=== PATIENT | female | born 1970 | race Caucasian/White ===

== ENCOUNTER → 2018-08-14 | Outpatient (CLI) | payer OTHER, MEDICARE ==
[~2018-08-14] MED LIST: CLON1 PO; CLON2 PO; CYMBALTA; DOXE25 PO; DULO60 PO; ESZO2 PO; ESZO3 PO; FIORICET 50-301 EACH PO; KETO10 PO; LATUDA80 MG PO; LEVSOD125 PO; LEVSOD150 PO; LITH300ER PO; OMEP20ER PO; SERT100 PO; TOPI100 PO; ZELNORM; Zofran4 MG PO
[2018-08-14 16:10] LABS: BASOPHILS ABSOLUTE AUTO 0.05 K/mm3 (0.00-0.23); BASOPHILS PERCENT AUTO 1 % (0-2); EOSINOPHILS ABSOLUTE AUTO 0.18 K/mm3 (0.00-0.68); EOSINOPHILS PERCENT AUTO 2 % (0-6); Hemoglobin 13.4 g/dL (11.5-16.0); IMMATURE GRAN ABSOLUTE AUTO 0.06 K/mm3 (0.00-0.10); IMMATURE GRAN PERCENT AUTO 1 % (0-1); LYMPHOCYTES ABSOLUTE AUTO 2.25 K/mm3 (0.84-5.20); LYMPHOCYTES PERCENT AUTO 25 % (21-46); MONOCYTES PERCENT AUTO 5 % (4-13); Mean Corpuscular HGB 28.1 pg (26.0-34.0); Mean Corpuscular HGB Conc 33.5 g/dL (31.5-36.5); Mean Corpuscular Volume 84 fL (80-100); Mean Platelet Volume 9.5 fL (9.1-12.4); NEUTROPHILS ABSOLUTE AUTO 6.15 K/mm3 (1.96-9.15); NEUTROPHILS PERCENT AUTO 67 % (41-73); Platelet Count 350 K/mm3 (150-400); RDW Coefficient Variation 12.8 % (11.7-14.2); RDW Standard Deviation 38.7 fL (35.1-46.3); Red Blood Cell Count 4.77 M/mm3 (3.80-5.20); White Blood Cell Count 9.19 K/mm3 (4.00-11.30)
[2018-08-14 16:24] LABS: Alanine Aminotransfer (ALT/SGP 55 U/L (12-78); Albumin, Blood 4.1 g/dL (3.4-5.0); Alk Phos 105 U/L (40-126); Anion Gap 11 mmol/L (6-16); Aspartate Aminotrans (AST/SGOT 25 U/L (12-37); Bilirubin, Total 0.3 mg/dL (0.1-1.0); Blood Urea Nitrogen 7 mg/dL (8-24); Bun/Creatinine Ratio 8.4 (12.0-20.0); CO2, Blood 26 mmol/L (21-32); CPK Creatine Kinase 62 U/L (26-192); Calcium, Blood 8.9 mg/dL (8.5-10.1); Chloride, Blood 103 mmol/L (98-108); Creatinine, Blood 0.83 mg/dL (0.40-1.00); Glomerular Filtration Rate >60 (60-); Glucose, Blood 98 mg/dL (70-99); Potassium, Blood 3.5 mmol/L (3.5-5.5); Sodium, Blood 140 mmol/L (136-145); Total Protein, Blood 8.1 g/dL (6.4-8.2)
[2018-08-14 16:25] LABS: Troponin I <0.017 ng/mL (0.000-0.040)
== END | disposition home or self-care (01) ==
LOC: LAB EV 16:06 → LAB SHORT 16:06
PROVIDERS: Physician Assistant
DX: R07.89 Other chest pain (principal)
CPT/HCPCS: 80053; 82550; 83690; 84484; 85025

== ENCOUNTER 2019-05-12 08:20 | Day surgery (SDC) | payer OTHER, MEDICARE ==
[2019-06-15] MEDS ORDERED: PRAV20 PO (14:10)
[2019-06-15] MEDS ORDERED: LISI20 PO (14:11)
[2019-06-15] MEDS ORDERED: OMEPRAZOLE20 MG PO (14:12)
[2019-06-15] MEDS ORDERED: PROP80ER PO (14:14)
[2019-06-15] MEDS ORDERED: Nortriptyline H50 MG PO (14:14)
[2019-06-15] MEDS ORDERED: QUET100 PO (14:14)
[2019-06-15] MEDS ORDERED: PROG100 PO (14:15)
[2019-06-15] MEDS ORDERED: Estrace Vagin42.5 GM VAG (14:17)
[2019-06-15] MEDS ORDERED: VITAMIN D325 MCG PO (14:17)
[2019-06-15] MEDS ORDERED: PERP8 PO (14:19)
[2019-06-15] MEDS ORDERED: Metamucil Plus1 EACH PO (14:19)
[2019-06-15] MEDS ORDERED: MODA200 PO (14:19)
[2019-06-15] MEDS ORDERED: Flonase 0.05% N16 GM (14:20)
[2019-06-15] MEDS ORDERED: EXCEDRIN MIGRAINE PO (14:21)
[2019-06-15] MEDS ORDERED: BELSOMRA20 MG PO (14:22)
[2019-06-15] MEDS ORDERED: VRAYLAR1.5 MG PO (14:24)
== END 2019-05-12 22:48 | disposition home or self-care (01) ==
LOC: MOI MAM 08:20
DX: D05.12 Intraductal carcinoma in situ of left breast (principal)
CPT/HCPCS: 19081; 88305; 88360

== ENCOUNTER 2019-06-14 09:11 | Day surgery (SDC) | payer OTHER, MEDICARE ==
[2019-06-15] MEDS ORDERED: PRAV20 PO (14:10)
[2019-06-15] MEDS ORDERED: LISI20 PO (14:11)
[2019-06-15] MEDS ORDERED: OMEPRAZOLE20 MG PO (14:12)
[2019-06-15] MEDS ORDERED: PROP80ER PO (14:14)
[2019-06-15] MEDS ORDERED: QUET100 PO (14:14)
[2019-06-15] MEDS ORDERED: Nortriptyline H50 MG PO (14:14)
[2019-06-15] MEDS ORDERED: PROG100 PO (14:15)
[2019-06-15] MEDS ORDERED: Estrace Vagin42.5 GM VAG (14:17)
[2019-06-15] MEDS ORDERED: VITAMIN D325 MCG PO (14:17)
[2019-06-15] MEDS ORDERED: Metamucil Plus1 EACH PO (14:19)
[2019-06-15] MEDS ORDERED: MODA200 PO (14:19)
[2019-06-15] MEDS ORDERED: PERP8 PO (14:19)
[2019-06-15] MEDS ORDERED: Flonase 0.05% N16 GM (14:20)
[2019-06-15] MEDS ORDERED: EXCEDRIN MIGRAINE PO (14:21)
[2019-06-15] MEDS ORDERED: BELSOMRA20 MG PO (14:22)
[2019-06-15] MEDS ORDERED: VRAYLAR1.5 MG PO (14:24)
== END 2019-06-14 22:40 | disposition home or self-care (01) ==
LOC: MOI MAM 09:11
DX: D05.12 Intraductal carcinoma in situ of left breast (principal); I10 Essential (primary) hypertension; E03.9 Hypothyroidism, unspecified; F31.9 Bipolar disorder, unspecified; F25.9 Schizoaffective disorder, unspecified; G47.00 Insomnia, unspecified; E78.5 Hyperlipidemia, unspecified; Z88.1 Allergy status to other antibiotic agents; Z88.8 Allergy status to other drugs, medicaments and biological substances; Z79.899 Other long term (current) drug therapy
CPT/HCPCS: 19281

== ENCOUNTER 2019-07-13 05:56 | Observation (INO) | payer OTHER, MEDICARE ==
[~2019-07-13] VITALS: Ht 160 cm; Wt 89.3 kg
[~2019-07-13 05:56] MED LIST changes: +BELSOMRA20 MG PO; +EXCEDRIN MIGRAINE PO; +Estrace Vagin42.5 GM VAG; +Flonase 0.05% N16 GM; +LISI20 PO; +MODA200 PO; +Metamucil Plus1 EACH PO; +Nortriptyline H50 MG PO; +OMEPRAZOLE20 MG PO; +PERP8 PO; +PRAV20 PO; +PROG100 PO; +PROP80ER PO; +QUET100 PO; +VITAMIN D325 MCG PO; +VRAYLAR1.5 MG PO
--- NOTE | 2019-07-13 06:18 | NUR ---
History, Chart, Medications and Allergies reviewed before start of procedure. Patient confirms NPO status and agrees with scheduled surgery.
--- NOTE | 2019-07-13 11:22 | NUR ---
Received the pt to room 219; She is alert, oriented, and was able to stand from the stretcher and step to the bed, at her request. Denied dizzyness/lightheadedness. STates pain is 5/10, tolerable. Vital signs stable. Dressing on the left chest wall noted to be intact, dry, and clean, secured with erin wrap around her entire chest. DEBO drain is in place, draining small amount of serosanginous drainage. She was accompanied to the room by her , and both were oriented to hourly rounding, call light functions, plan of care, and advancement of diet as tolerated. She was also instructed to not get up without assistance at this time. SHe verbalized understanding. Provided with ice chips and water by Leelee DanielA.
[2019-07-13] MEDS ORDERED: HYDPAM25 PO (11:57)
--- NOTE | 2019-07-13 12:17 | NUR ---
The pt is tolerating her ice chips and clear liquids, and is also eating some jello very slowly, and states that she has no nausea. Home medications reconciled, and nursing admission history and assessment completed. The pt reports that her pain has improved to a 4/10 from 5/10 when she arrived. She is requesting a dietary consultation for education on plant-based, whole foods diet, and also a vegan diet. These were ordered for her. Spoke with Dr. Nelson at this time as he came by to check on the patient, and additional verbal medication orders were received.
--- NOTE | 2019-07-13 17:21 | NUR ---
CARE ASSUMED FOR PT AT APPROXIMATELY 1616. PT ALERT AND ORIENTED. PAIN MANAGED. WILL CONTINUE TO MONITOR.
--- NOTE | 2019-07-13 18:04 | NUR ---
SHIFT SUMMARY PAIN MANAGED. PT IS TOLERATING PO. INDEPENDENT IN ROOM. NO CHANGES TO REPORT AT THIS TIME. WILL CONTINUE TO MONITOR.
[2019-07-13] MEDS ORDERED: CLON2 PO (19:58)
--- NOTE | 2019-07-14 06:16 | NUR ---
SHIFT SUMMARY HAS RESTED THIS SHIFT. PAIN MANAGED WITH PRN PAIN MEDS GIVEN X2 THIS SHIFT. HAS AMBULATED TO BATHROOM WITHOUT ASSISTACE NEEDED. 60ML SS OUTPUT IN DEBO DRAIN. DENIES FURTHER NEEDS OR WANTS AT THIS TIME SAFETY MEASURES IN PLACE. WILL GIVE HAND OFF TO ONCOMING SHIFT USING SBAR DURING BEDSIDE REPORT.
--- NOTE | 2019-07-14 07:50 | NUR ---
DR PHIPPS ROUNDING ON PT
[2019-07-14] MEDS ORDERED: HYDR1TAB94 PO (10:03)
--- NOTE | 2019-07-14 10:53 | NUR ---
discharge teaching provided with stated understanding of instructions. pt and to transport pt's belongings to awaiting vehicle. pt declines wheelchair, will walk to car. peripheral IV removed WNL
== END 2019-07-14 10:53 | disposition home or self-care (01) ==
LOC: ORSCMMR 05:56 → ORD 07:30 → ORSCMMR 09:46 → SURS 09:46
PROVIDERS: ADMIT Surgery
PROC: 0HBU0ZZ Excision of Left Breast, Open Approach (ICD-10-PCS; principal; 2019-07-13 07:30)
DX: D05.12 Intraductal carcinoma in situ of left breast (principal); Z79.899 Other long term (current) drug therapy; Z98.890 Other specified postprocedural states
CPT/HCPCS: 88307; A9270-GY; G0378; J0690; J1100; J2250; J2405; J2704; J2710; J3010; J7120

== ENCOUNTER → 2020-02-29 | Outpatient (CLI) | payer OTHER, MEDICARE ==
[~2020-02-29] MED LIST changes: +HYDPAM25 PO; +HYDR1TAB94 PO
[2020-03-04 14:32] LABS: Stool Occult Bld Immuno 1 Negative (NEGATIVE)
== END | disposition home or self-care (01) ==
LOC: LAB SHORT 03:00 → LAB EV 03:00 → LAB SHORT 03-03 10:20
PROVIDERS: Registered Nurse Oncology
DX: D50.9 Iron deficiency anemia, unspecified (principal)
CPT/HCPCS: 82274

== ENCOUNTER 2020-06-26 11:34 | Day surgery (SDC) | payer OTHER, MEDICARE ==
[~2020-06-26] VITALS: Ht 160 cm; Wt 82.2 kg
[2020-06-26] MEDS ORDERED: PERP2 (11:55)
[2020-12-13] MEDS ORDERED: Nolvadex20 MG PO (21:09)
[2020-12-13] MEDS ORDERED: ABILIFY MYCITE5 M2 PO (21:10)
[2020-12-13] MEDS ORDERED: SERT50 PO (21:10)
[2020-12-13] MEDS ORDERED: METPHE18ER PO (21:10)
[2020-12-13] MEDS ORDERED: CLON.5 PO (21:11)
== END 2020-06-26 13:24 | disposition home or self-care (01) ==
LOC: ORSCSDS 11:34
PROVIDERS: Student in an Organized Health Care Education/Training Program
PROC: 0DB78ZX Excision of Stomach, Pylorus, Via Natural or Artificial Opening Endoscopic, Diagnostic (ICD-10-PCS; principal; 2020-06-26 13:00)
PROC: 0DBN8ZX Excision of Sigmoid Colon, Via Natural or Artificial Opening Endoscopic, Diagnostic (ICD-10-PCS; principal; 2020-06-26 13:00)
DX: D50.9 Iron deficiency anemia, unspecified (principal); D12.0 Benign neoplasm of cecum; F41.8 Other specified anxiety disorders; G47.33 Obstructive sleep apnea (adult) (pediatric); E06.3 Autoimmune thyroiditis; Z85.3 Personal history of malignant neoplasm of breast; Z79.899 Other long term (current) drug therapy
CPT/HCPCS: 88305; 88342; A9270; J2704; J7120

== ENCOUNTER 2021-08-02 16:06 | Emergency (ER) | payer OTHER, MEDICARE ==
[~2021-08-02] VITALS: Ht 162.6 cm; Wt 77.1 kg
[~2021-08-02 16:06] MED LIST changes: +ABILIFY MYCITE5 M2 PO; +CLON.5 PO; +METPHE18ER PO; +Nolvadex20 MG PO; +PERP2; +SERT50 PO
[2021-08-02 16:52] LABS: BASOPHILS ABSOLUTE AUTO 0.04 K/mm3 (0.00-0.23); BASOPHILS PERCENT AUTO 1 % (0-2); EOSINOPHILS PERCENT AUTO 1 % (0-6); Hematocrit 39.7 % (33.0-51.0); Hemoglobin 13.3 g/dL (11.5-16.0); IMMATURE GRAN ABSOLUTE AUTO 0.02 K/mm3 (0.00-0.10); IMMATURE GRAN PERCENT AUTO 0 % (0-1); LYMPHOCYTES ABSOLUTE AUTO 2.11 K/mm3 (0.84-5.20); LYMPHOCYTES PERCENT AUTO 26 % (21-46); MONOCYTES ABSOLUTE AUTO 0.51 K/mm3 (0.16-1.47); MONOCYTES PERCENT AUTO 6 % (4-13); Mean Corpuscular HGB 27.5 pg (26.0-34.0); Mean Corpuscular HGB Conc 33.5 g/dL (31.5-36.5); Mean Corpuscular Volume 82 fL (80-100); Mean Platelet Volume 9.9 fL (9.1-12.4); NEUTROPHILS ABSOLUTE AUTO 5.24 K/mm3 (1.96-9.15); NEUTROPHILS PERCENT AUTO 65 % (41-73); Platelet Count 322 K/mm3 (150-400); RDW Standard Deviation 38.5 fL (35.1-46.3); Red Blood Cell Count 4.84 M/mm3 (3.80-5.20); White Blood Cell Count 8.02 K/mm3 (4.00-11.30)
[2021-08-02 17:19] LABS: Alanine Aminotransfer (ALT/SGP 27 U/L (12-78); Albumin, Blood 3.8 g/dL (3.4-5.0); Albumin/Globulin Ratio 1.1 (0.8-1.8); Alk Phos 71 U/L (50-136); Anion Gap 5 mmol/L (6-16); Aspartate Aminotrans (AST/SGOT 11 U/L (12-37); Bilirubin, Total 0.2 mg/dL (0.1-1.0); Blood Urea Nitrogen 15 mg/dL (8-24); Bun/Creatinine Ratio 22.3 (12.0-20.0); CO2, Blood 25 mmol/L (21-32); Calcium, Blood 9.4 mg/dL (8.5-10.1); Chloride, Blood 110 mmol/L (98-108); Creatinine, Blood 0.67 mg/dL (0.40-1.00); Globulin, Blood 3.6 g/dL (2.2-4.0); Glomerular Filtration Rate >60 (60-); Glucose, Blood 155 mg/dL (70-99); Potassium, Blood 3.4 mmol/L (3.5-5.5); Sodium, Blood 140 mmol/L (136-145); Total Protein, Blood 7.4 g/dL (6.4-8.2)
== END 2021-08-02 21:16 | disposition home or self-care (01) ==
LOC: ER 16:06
PROVIDERS: Physician Assistant
DX: M25.512 Pain in left shoulder (principal); M54.2 Cervicalgia
CPT/HCPCS: 36415; 80053; 84484; 85025; 93005; 93010; 99283-25

== ENCOUNTER → 2023-03-17 | Outpatient (CLI) | payer OTHER, MEDICARE ==
[2023-03-17 17:52] LABS: Bun/Creatinine Ratio 15.6 (12.0-20.0); Creatinine, Blood 0.77 mg/dL (0.40-1.00)
== END ==
LOC: LAB SHORT 16:14 → LAB 16:14
PROVIDERS: Registered Nurse Oncology
DX: D05.10 Intraductal carcinoma in situ of unspecified breast (principal); M85.80 Other specified disorders of bone density and structure, unspecified site
CPT/HCPCS: 80048

== ENCOUNTER 2023-07-10 08:59 | Day surgery (SDC) | payer OTHER, MEDICARE ==
[~2023-07-10] VITALS: Ht 160 cm; Wt 83.6 kg
[~2023-07-10 08:59] MED LIST changes: +Lactated Ringer's 1,000 ML IV ONE
[2023-07-10] MEDS ORDERED: CeFAZolin Sodium 2,000 MG VIAL ONE (09:23)
[2023-07-10] MEDS ORDERED: NS 50 ML IV ONE (09:24)
[2023-07-10] MEDS ORDERED: METO25ER PO (09:33)
[2023-07-10] MEDS ORDERED: VITAMIN D5000 UNIT PO (09:35)
[2023-07-10] MEDS ORDERED: CAPLYTA42 MG PO (09:35)
[2023-07-10] MEDS ORDERED: VENL150ER PO (09:35)
[2023-07-10] MEDS ORDERED: LORA2 PO (09:36)
[2023-07-10] MEDS ORDERED: ARIMIDEX1 M2 PO (09:36)
[2023-07-10] MEDS ORDERED: GABA300 PO ×2 (09:36→09:37)
[2023-07-10] MEDS ORDERED: ZOLEDRONIC ACID4 M5 (09:37)
[2023-07-10] MEDS ORDERED: MULTI-VITAMIN1 EAC2 PO (09:38)
[2023-07-10] MEDS ORDERED: IBUP200 PO (09:38)
[2023-07-10] MEDS ORDERED: SYSTANE BALANCE10 ML OP (09:39)
[2023-07-10] MEDS ORDERED: Lactated Ringer's 1,000 ML IV ONE (09:54)
[2023-07-10] MEDS ORDERED: Midazolam HCl 1MG / ML 2ML Vial ONE (09:54)
[2023-07-10] MEDS ORDERED: FentaNYL Citrate 50 MCG/ML 2 ML Injection ONE ×2 (09:54→11:12)
[2023-07-10] MEDS ORDERED: propofoL 20 ML IV ONE (09:54)
[2023-07-10] MEDS ORDERED: Ondansetron HCl 2 MG / ML 2ML Vial ONE (09:56)
[2023-07-10] MEDS ORDERED: Dexamethasone Sod Phos 10 MG/ML 1ML VIAL ONE (09:56)
[2023-07-10] MEDS ORDERED: Ketorolac Tromethamine 30mg Vial ONE (09:56)
--- NOTE | 2023-07-10 11:08 | NUR ---
07/10/23 1108 Dea Braga 500CC NACL HYSTEROSCOPY FLUID DEFICIT
[2023-07-10 11:46] VITALS: BP 137/86
== END 2023-07-10 13:29 | disposition home or self-care (01) ==
LOC: ORSCSDS 08:59
PROVIDERS: Obstetrics & Gynecology
PROC: 0UDB8ZX Extraction of Endometrium, Via Natural or Artificial Opening Endoscopic, Diagnostic (ICD-10-PCS; principal; 2023-07-10 10:30)
DX: N84.0 Polyp of corpus uteri (principal); N95.0 Postmenopausal bleeding; I10 Essential (primary) hypertension; E06.3 Autoimmune thyroiditis; Z79.899 Other long term (current) drug therapy; Z68.32 Body mass index [BMI] 32.0-32.9, adult
CPT/HCPCS: 88305; J0690; J1100; J1885; J2250; J2405; J2704; J3010; J7120